=== PATIENT | male | born 1985 | race Caucasian/White ===

== ENCOUNTER 2021-05-25 17:25 | Emergency (ER) | payer OTHER ==
[2021-05-25] MEDS ORDERED: NAPROXEN500 MG PO (21:33)
== END 2021-05-25 21:59 | disposition home or self-care (01) ==
LOC: FER 17:25
DX: S39.012A Strain of muscle, fascia and tendon of lower back, initial encounter (principal); F17.210 Nicotine dependence, cigarettes, uncomplicated
CPT/HCPCS: 96372; 99283; J1100; J1885